=== PATIENT | male | born 1950 | race Caucasian/White ===

== ENCOUNTER 2018-06-18 13:38 | Emergency (ER) | payer MEDICARE, OTHER ==
[~2018-06-18] VITALS: Ht 180.3 cm; Wt 86.2 kg
[2018-06-18] MEDS ORDERED: LOSARTAN POTASS50 MG PO (13:53)
[2018-06-18] MEDS ORDERED: MECLIZINE HCL25 MG PO (16:24)
[2018-06-18] MEDS ORDERED: METHYLPREDNISOLO4 M1 PO (16:24)
[2018-06-18] MEDS ORDERED: AUGMENTIN 875-1 EACH PO (16:24)
--- NOTE | 2018-06-19 00:34 | EKG ---
[facility] [address] [facility] [place] [address] Signed Sinus rhythm with occasional premature ventricular complexes Left axis deviation Abnormal ECG No previous ECGs available Confirmed by INDIA SILVESTRE MD ([id number] on 06/19/2018 12:34:02 AM Electronically Signed By: INDIA SILVESTRE MD 06/19/18 0034 PATIENT NAME: SHENG GOODSON NICKOLAS Electrocardiogram DATE OF : 48 PHYSICIAN: INDIA SILVESTRE MD REPORT #: [id number] REPORT IS CONFIDENTIAL AND NOT TO BE RELEASED WITHOUT AUTHORIZATION
== END 2018-06-18 16:56 | disposition home or self-care (01) ==
LOC: ED 13:38
DX: H83.02 Labyrinthitis, left ear (principal); Z79.899 Other long term (current) drug therapy
CPT/HCPCS: 70450; 80053; 81001; 84484; 85025; 93005; 93010; 99284-25